=== PATIENT | female | born 1990 | race Hispanic/Latino ===

== ENCOUNTER 2024-03-30 15:13 | Outpatient (CLI) | payer OTHER | END 2024-03-30 15:14 | disposition home or self-care (01) | LOC: CSHULT 15:13 | PROVIDERS: ATTEND Family Medicine | DX: O09.892 Supervision of other high risk pregnancies, second trimester (principal) | CPT/HCPCS: 76805 ==

== ENCOUNTER 2024-06-18 13:11 | Day surgery (SDC) | payer OTHER ==
[2024-06-18 13:53] VITALS: BMI 27.3
[2024-06-18] MEDS ORDERED: hydrALAZINE 20 MG/ML VIAL SLOW IVP PRN (14:08)
== END 2024-06-18 15:50 | disposition home or self-care (01) ==
LOC: CSHLD/OP 13:11
PROVIDERS: ATTEND Family Medicine
DX: O36.8130 Decreased fetal movements, third trimester, not applicable or unspecified (principal); O26.643 Intrahepatic cholestasis of pregnancy, third trimester; K83.1 Obstruction of bile duct; O00.01 Abdominal pregnancy with intrauterine pregnancy; O99.283 Endocrine, nutritional and metabolic diseases complicating pregnancy, third trimester; E07.9 Disorder of thyroid, unspecified; Z98.890 Other specified postprocedural states; Z87.891 Personal history of nicotine dependence; Z79.899 Other long term (current) drug therapy; Z3A.33 33 weeks gestation of pregnancy
CPT/HCPCS: 76819; 99282

== ENCOUNTER 2024-06-21 12:02 | Day surgery (SDC) | payer OTHER ==
[2024-06-21] MEDS ORDERED: hydrALAZINE 20 MG/ML VIAL SLOW IVP PRN (13:28)
== END 2024-06-21 15:50 | disposition home health service (06) ==
LOC: CSHLD/OP 12:02
PROVIDERS: ATTEND Family Medicine
DX: O36.8130 Decreased fetal movements, third trimester, not applicable or unspecified (principal); O26.643 Intrahepatic cholestasis of pregnancy, third trimester; K83.1 Obstruction of bile duct; O99.283 Endocrine, nutritional and metabolic diseases complicating pregnancy, third trimester; E07.9 Disorder of thyroid, unspecified; O99.333 Smoking (tobacco) complicating pregnancy, third trimester; Z87.891 Personal history of nicotine dependence; Z3A.33 33 weeks gestation of pregnancy
CPT/HCPCS: 76819

== ENCOUNTER 2024-07-21 15:14 | Day surgery (SDC) | payer OTHER ==
[2024-07-21 15:37] VITALS: BMI 28.7
[2024-07-21] MEDS ORDERED: hydrALAZINE 20 MG/ML VIAL SLOW IVP PRN (15:54)
== END 2024-07-21 19:05 | disposition home or self-care (01) ==
LOC: CSHLD/OP 15:14
PROVIDERS: ATTEND Family Medicine
DX: O47.1 False labor at or after 37 completed weeks of gestation (principal); O26.643 Intrahepatic cholestasis of pregnancy, third trimester; O36.8130 Decreased fetal movements, third trimester, not applicable or unspecified; Z3A.37 37 weeks gestation of pregnancy
CPT/HCPCS: 76819; 99283

== ENCOUNTER 2024-07-23 18:00 | Inpatient (IN) | payer MEDICAID, OTHER ==
[~2024-07-23 18:00] MED LIST: Bupivacaine 0.25% HCL 30 ML VIAL ONE
[2024-07-23 19:34] VITALS: BMI 28.7
[2024-07-23] MEDS ORDERED: HYDROcodone/Acetaminophen 5/325 mg Tablet PO PRN (22:59)
[2024-07-23] MEDS ORDERED: Acetaminophen 500 MG TAB PO PRN (22:59)
[2024-07-23] MEDS ORDERED: fentaNYL 50 mcg/mL 1 mL Vial SLOW IVP PRN (22:59)
[2024-07-23] MEDS ORDERED: Lidocaine 1% (PF) 30 ML VIAL SC PRN (22:59)
[2024-07-23] MEDS ORDERED: Ibuprofen 800 MG TAB PO PRN (22:59)
[2024-07-23] MEDS ORDERED: Promethazine HCl 25 MG/ML VIAL IM PRN (22:59)
[2024-07-23] MEDS ORDERED: Misoprostol 200 MCG TAB PR PRN (22:59)
[2024-07-23] MEDS ORDERED: Diphenoxylate HCl/Atropine Tablet PO PRN (22:59)
[2024-07-23] MEDS ORDERED: Carboprost 250 MCG/ML AMP IM PRN (22:59)
[2024-07-23] MEDS ORDERED: hydrALAZINE 20 MG/ML VIAL SLOW IVP PRN (22:59)
[2024-07-23] MEDS ORDERED: Oxytocin 30 units/NS 500 ML 500 ML IV SCH ×2 (23:00)
[2024-07-23 23:54] LABS: Hematocrit 28.6 % (34.9-44.5); Mean Corpuscular HGB CONC 31.5 g/dL (32.0-36.0); Mean Corpuscular Hemoglobin 25.2 pg (27.0-33.0); Mean Corpuscular Volume 80.1 fL (81.6-98.3); Mean Platelet Volume 10.7 fL (7.4-10.4); Platelet Count 355 10x3/uL (150-450); RBC Distribution Width 14.2 % (11.5-14.5); Red Blood Cell (RBC) Count 3.57 10x6/uL (3.90-5.03); White Blood Cell (WBC) Count 7.3 10x3/uL (3.5-10.5)
[2024-07-23] MEDS: Misoprostol 100 MCG TAB PO SCH (23:55)
[2024-07-23] MEDS: Penicillin G Potassium 5 MILL.UNITS in Sodium Chloride 0.9% 100 ML IVPB SCH (23:55)
[2024-07-23] MEDS: Lactated Ringer's 1,000 ML IV SCH (23:55)
[2024-07-24 00:24] LABS: Syphilis Antibody Nonreactive (Nonreactive); Syphilis Antibody Index 0.08 S/CO (<1.00 Non-Reactive)
[2024-07-24 00:25] LABS: HBsAg Index 0.22 S/CO (0-0.99); Hep B Surf Ag - L&D Non-Reactive S/CO (NonReactive)
[2024-07-24] MEDS: Penicillin G 2.5 MILL.units 2.5 MILL.UNITS in Premix 1 BAG IVPB SCH (03:52)
[2024-07-24] MEDS: Oxytocin 30 units/NS 500 ML 500 ML IV SCH (06:40)
[2024-07-24] MEDS: fentaNYL/Ropivacaine Epidural 100 ML ONE (08:55)
[2024-07-24] MEDS ORDERED: Promethazine HCl 25 MG/ML VIAL IM PRN ×2 (09:07→13:43)
[2024-07-24] MEDS ORDERED: Acetaminophen 325 MG TAB PO PRN (09:07)
[2024-07-24] MEDS ORDERED: Moisturizing Cream (Eucerin) 113 GM JAR TOP PRN (09:07)
[2024-07-24] MEDS ORDERED: Naloxone HCl 0.4 mg/ml Vial IVP PRN ×2 (09:07)
[2024-07-24] MEDS ORDERED: ePHEDrine Sulfate 50 MG/10 ML VIAL SLOW IVP PRN (09:07)
[2024-07-24] MEDS ORDERED: Lactated Ringer's 500 ML IV PRN (09:07)
[2024-07-24] MEDS ORDERED: diphenhydrAMINE 50 MG/ML VIAL IVP PRN (09:07)
[2024-07-24] MEDS ORDERED: Ondansetron PF 4 MG/2 ML Vial IVP PRN ×2 (09:07→13:43)
[2024-07-24] MEDS ORDERED: fentaNYL 2 mcg/Ropivacaine 0.2% Epidural 100 ML CADD EPIDURAL SCH (09:15)
[2024-07-24] MEDS ORDERED: Communication Order-Pharmacy FS SCH (09:15)
[2024-07-24] MEDS: Methylergonovine 0.2 MG/ML VIAL IM PRN (09:52)
[2024-07-24] MEDS: Tranexamic Acid 1,000 MG/10 ML VIAL IVP PRN (09:59)
[2024-07-24] MEDS: Ondansetron PF 4 MG/2 ML Vial IVP PRN (10:25)
[2024-07-24] MEDS ORDERED: AZITHROMYCIN IVPB SCH (10:30)
[2024-07-24] MEDS: CEFAZOLIN 2 GM in Sodium Chloride 0.9% 100 ML IVPB SCH ×2 (11:09→20:51)
[2024-07-24] MEDS: Azithromycin 500 MG in Sodium Chloride 0.9% 250 ML 250 ML IVPB SCH (11:47)
[2024-07-24] MEDS ORDERED: hydrALAZINE 20 MG/ML VIAL SLOW IVP PRN (13:43)
[2024-07-24] MEDS ORDERED: diphenhydrAMINE 25 MG CAP PO PRN (13:43)
[2024-07-24] MEDS ORDERED: Lanolin Ointment 7 GM TUBE TOP PRN (13:43)
[2024-07-24] MEDS ORDERED: Bisacodyl 10 MG SUPP PR PRN (13:43)
[2024-07-24] MEDS ORDERED: Milk Of Magnesia 30 ML UDCUP PO PRN (13:43)
[2024-07-24] MEDS ORDERED: Oxytocin 30 units/NS 500 ML 500 ML IV SCH (13:43)
[2024-07-24] MEDS: Dexmedetomidine 200 MCG/2 ML VIAL ONE (14:54)
[2024-07-24] MEDS: Boostrix 0.5 ML (Tdap) VIAL (>/=7 yrs of age) IM ONE (14:57)
[2024-07-24] MEDS: Ibuprofen 800 MG TAB PO SCH ×2 (15:48→16:06)
[2024-07-24] MEDS: Ferrous Sulfate 325 MG TAB PO SCH (16:05)
[2024-07-24 16:22] LABS: Hematocrit 27.4 % (34.9-44.5); Hemoglobin 8.4 g/dL (12.0-15.5); Mean Corpuscular HGB CONC 30.7 g/dL (32.0-36.0); Mean Corpuscular Hemoglobin 24.8 pg (27.0-33.0); Mean Corpuscular Volume 80.8 fL (81.6-98.3); Mean Platelet Volume 10.3 fL (7.4-10.4); Platelet Count 258 10x3/uL (150-450); RBC Distribution Width 14.1 % (11.5-14.5); Red Blood Cell (RBC) Count 3.39 10x6/uL (3.90-5.03)
[2024-07-24 16:42] LABS: D-Dimer Test 16.98 mcg/mL (0.19-0.50); PTT 25.6 sec (22.0-33.0); Prothrombin Time 10.4 sec (9.5-12.1)
[2024-07-24] MEDS: Docusate 100 MG CAP PO SCH (20:40)
[2024-07-24] MEDS: HYDROcodone/Acetaminophen 5/325 mg Tablet PO PRN (20:40)
[2024-07-24] MEDS: Benzocaine-Menthol 82.5 ML CAN TOP PRN (20:41)
[2024-07-25] MEDS: Prenatal Vitamin 1 TAB PO SCH (09:15)
[2024-07-25 11:09] VITALS: BP 91/54; TEMP 98.4
== END 2024-07-25 18:05 | disposition home or self-care (01) | DRG 807 ==
LOC: CSHLD 18:29 → CSHPED 07-24 14:44
PROVIDERS: ADMIT Family Medicine; ATTEND Family Medicine
PROC: 10E0XZZ Delivery of Products of Conception, External Approach (ICD-10-PCS; principal; 2024-07-24)
PROC: 10907ZC Drainage of Amniotic Fluid, Therapeutic from Products of Conception, Via Natural or Artificial Opening (ICD-10-PCS; 2024-07-24)
PROC: 0UQMXZZ Repair Vulva, External Approach (ICD-10-PCS; 2024-07-24)
PROC: 0UQGXZZ Repair Vagina, External Approach (ICD-10-PCS; 2024-07-24)
DX: O26.643 Intrahepatic cholestasis of pregnancy, third trimester (principal); Z37.0 Single live birth; Z3A.38 38 weeks gestation of pregnancy; O62.2 Other uterine inertia; O70.0 First degree perineal laceration during delivery; E78.79 Other disorders of bile acid and cholesterol metabolism; K76.89 Other specified diseases of liver
CPT/HCPCS: 36415; 85027; 85049; 85300; 85362; 85384; 85610; 85730; 86780; 86850; 86900; 86901; 87340; J0456; J0665; J2210; J2405; J2540; J2590; J7050; J7120